=== PATIENT | female | born 1970 | race Caucasian/White ===

== ENCOUNTER → 2020-07-08 09:27 | Outpatient (BNVA) | payer OTHER, SELFPAY | PROVIDERS: PCP Internal Medicine; Visit Provider Physician Assistant | DX: Z76.89 Persons encountering health services in other specified circumstances (principal) ==

== ENCOUNTER 2020-07-09 07:09 | Outpatient (REF) | payer OTHER, SELFPAY ==
[2020-07-09 08:06] LABS: MANUAL DIFF FLAG NO
[2020-07-09 08:14] LABS: Basophils Absolute Auto 0.1 X10*3/uL (0.0-0.2); Basophils Percent Auto 0.7 % (0-2); Eosinophils Absolute Auto 0.1 X10*3/uL (0.0-0.4); Eosinophils Percent Auto 1.9 % (0-4); Hematocrit 39.6 % (37-47); Imm Gran Abs Auto 0.03 X10*3/uL (0.00-0.03); Imm Gran Pct Auto 0.4 % (0.0-0.4); Lymphocytes Percent Auto 13.8 % (20-40); Mean Corpuscular HGB Conc 32.8 g/dl (31.0-35.0); Mean Corpuscular Volume 91.5 fL (80-98); Mean Platelet Volume 12.4 fL (9.4-12.3); Monocytes Absolute Auto 0.5 X10*3/uL (0.1-1.2); Monocytes Percent Auto 6.9 % (2-11); Neutrophils Absolute Auto 5.2 X10*3/uL (2.0-8.3); Neutrophils Percent Auto 76.3 % (45-73); Platelet Count 172 X10*3/uL (160-400); Red Blood Count 4.33 X10*6/uL (4.20-5.50); Red Cell Distribution Width 13.9 % (11.0-16.0); White Blood Count 6.9 X10*3/uL (4.8-10.8)
[2020-07-09 08:35] LABS: C Reactive Protein 0.41 mg/dL (< or = 0.50); Cholesterol 128 mg/dL; HDL Cholesterol 45 mg/dL; Iron 64 mcg/dL (30-160); LDL Cholesterol Calculated 65 mg/dl; Percent Iron Saturation 20 % (15-50); Total Iron Binding Capacity 316 mcg/dL (228-428); Triglycerides 93 mg/dL; Unsaturated Iron Binding 252 ug/dL
[2020-07-09 08:48] LABS: Estimated Average Glucose 100 mg/dL; Hemoglobin A1c % 5.1 %
[2020-07-09 08:56] LABS: TSH reflex Free T4 2.54 mIU/mL (0.32-4.0); Vitamin D 25-OH Total 24.6 ng/mL (>30)
[2020-07-09 09:24] LABS: Vitamin B12 719 pg/mL (200-900)
[2020-07-09 09:29] LABS: Ferritin 47 ng/mL (10-250)
[2020-07-10 21:32] LABS: Insulin Level Total 5.6 uIU/mL
[2020-07-11 23:22] LABS: Zinc 74 mcg/dL (60-130)
[2020-07-13 11:31] LABS: Vitamin B1 17 nmol/L (8-30)
[2020-07-14 15:52] LABS: Vitamin A 32 mcg/dL (38-98)
[2020-07-15 17:57] LABS: Parathyroid Hormone Related Pr 9 pg/mL (14-27)
== END 2020-07-09 07:10 | disposition home or self-care (01) ==
LOC: HO.LAB 07:09
PROVIDERS: PCP Internal Medicine; Visit Provider Physician Assistant
DX: E66.9 Obesity, unspecified (principal); Z98.84 Bariatric surgery status
CPT/HCPCS: 36415; 80061; 82306; 82607; 82728; 82746; 83036; 83519; 83525; 83540; 84425; 84443; 84590; 84630; 85025; 86140

== ENCOUNTER → 2020-07-23 13:26 | Outpatient (BNVA) | payer OTHER, SELFPAY | PROVIDERS: PCP Internal Medicine; Visit Provider Physician Assistant | DX: Z76.89 Persons encountering health services in other specified circumstances (principal) ==

== ENCOUNTER → 2020-08-29 09:48 | Outpatient (BNVA) | payer OTHER, SELFPAY | PROVIDERS: PCP Internal Medicine; Referring Provider Internal Medicine; Visit Provider Physician Assistant | DX: Z76.89 Persons encountering health services in other specified circumstances (principal) ==

== ENCOUNTER 2020-10-06 09:56 | Outpatient (REF) | payer OTHER, SELFPAY ==
[2020-10-10 22:23] LABS: Vitamin A 36 mcg/dL (38-98)
== END 2020-10-06 09:57 | disposition home or self-care (01) ==
LOC: HO.LAB 09:56
PROVIDERS: PCP Internal Medicine; Visit Provider Physician Assistant
DX: E56.9 Vitamin deficiency, unspecified (principal)
CPT/HCPCS: 36415; 84590

== ENCOUNTER → 2020-10-22 08:21 | Outpatient (BNVA) | payer OTHER, SELFPAY | PROVIDERS: PCP Internal Medicine; Visit Provider Physician Assistant | DX: Z76.89 Persons encountering health services in other specified circumstances (principal) ==

== ENCOUNTER → 2020-11-21 08:14 | Outpatient (BNVA) | payer OTHER, SELFPAY | PROVIDERS: PCP Internal Medicine; Visit Provider Physician Assistant ==

== ENCOUNTER 2023-06-15 08:34 | Emergency (ER) | payer BC, SELFPAY ==
--- NOTE | ~2023-06-15 | US_ITS ---
EXAMINATION: US ABDOMEN LIMITED CLINICAL INFORMATION: Upper abdominal pain. Abnormal LFTs.. COMPARISON: Abdominal ultrasound 09/03/2016 TECHNIQUE: Real-time imaging of the right upper quadrant abdominal viscera. FINDINGS: PANCREAS: Visualized portions of pancreas are normal in appearance. LIVER: Normal. The liver is normal in size. The liver contour is normal. Parenchymal echogenicity is normal. No focal hepatic lesion. There is no intrahepatic biliary duct dilatation seen. GALLBLADDER: Normal. The gallbladder is physiologically distended without evidence of stones, sludge, polyps, wall thickening or pericholecystic fluid. COMMON BILE DUCT: Normal in caliber measuring 0.7 cm in diameter. RIGHT KIDNEY: Normal. No hydronephrosis. No renal calculi or focal parenchymal lesions. The kidney measures 11.3 cm in maximum dimension. FREE FLUID: None. US/US abdomen limited IMPRESSION: Unremarkable sonographic imaging of the right upper abdomen.
--- NOTE | ~2023-06-15 | CT_ITS ---
EXAMINATION: CT ABDOMEN AND PELVIS WITHOUT CONTRAST CLINICAL INFORMATION: Right abdominal pain evaluate for kidney stone COMPARISON: US abdomen limited from 06/15/2023 TECHNIQUE: Multidetector volumetric imaging was performed from the superior aspect of the liver through the pubic symphysis. Sagittal and coronal reformatted images were obtained on the technologist's workstation. This CT examination was performed using dose optimization techniques as appropriate, variously including the following: *Automated exposure control *Adjustment of mA and/or kV according to patient size (this includes techniques or standardized protocols for targeted exams where dose is matched to indication/reason for exam; i.e. extremities or head) *Use of iterative reconstruction technique DLP: 897 mGy-cm FINDINGS: LUNG BASES: The visualized lung bases are unremarkable. LIVER, GALLBLADDER, AND BILIARY TREE: The liver is normal in size, shape, and attenuation. No focal hepatic lesion or biliary ductal dilatation is present. The gallbladder is unremarkable with no evidence of radiopaque gallstones, gallbladder wall thickening, or obvious pericholecystic inflammatory changes. PANCREAS: Unremarkable. SPLEEN: Unremarkable. 7 mm splenule. ADRENAL GLANDS: Unremarkable. KIDNEYS AND URETERS: Exophytic hypodense focus along the posterior lateral aspect of the left renal lower pole demonstrating fluid attenuation statistically representing a simple cyst measuring up to 8 mm, not requiring follow-up. The kidneys are normal in size, shape, and attenuation. No hydronephrosis, hydroureter, or calculi seen. No perinephric stranding. BLADDER: Optimally distended. GASTROINTESTINAL TRACT: Post surgical changes status post gastric bypass. Very slight colonic diverticulosis without acute diverticulitis. The small and large bowel are unremarkable. The appendix is unremarkable. ABDOMINAL WALL: No significant hernia is appreciated. LYMPH NODES: No enlarged lymph nodes per size criteria. VASCULAR: Unremarkable. PELVIC VISCERA: Anteverted uterus. T-shaped IUD is noted in situ. Bilateral ovarian/adnexal hypodense foci the largest on the right side measuring up to 1.7 cm. Findings are overwhelmingly likely to represent a normal ovarian follicle. No follow-up imaging recommended. OSSEOUS STRUCTURES: Multilevel degenerative changes of the thoracolumbar and lumbosacral spine. CT/CT abdomen pelvis wo IV con IMPRESSION: 1. No acute process of the abdomen or pelvis identified. 2. Exophytic hypodense focus along the posterior lateral aspect of the left renal lower pole demonstrating fluid attenuation statistically representing a simple cyst measuring up to 8 mm, not requiring follow-up. 3. Post surgical changes status post gastric bypass. 4. Very slight colonic diverticulosis without acute diverticulitis. 5. T-shaped IUD is noted in situ. 6. Bilateral ovarian/adnexal hypodense foci the largest on the right side measuring up to 1.7 cm. Findings are overwhelmingly likely to represent a normal ovarian follicle. No follow-up imaging recommended.
[2023-06-15 09:07] VITALS: BP 142/82; PULSE 76; RESP 19; TEMP 36.9; O2SAT 98; BMI 38.8
[2023-06-15 09:31] LABS: MANUAL DIFF FLAG NO
[2023-06-15 09:36] LABS: Basophils Percent Auto 0.4 % (0-2); Eosinophils Absolute Auto 0.1 X10*3/uL (0.0-0.4); Eosinophils Percent Auto 0.9 % (0-4); Hematocrit 39.5 % (37.0-47.0); Hemoglobin 13.1 g/dl (12.0-16.0); Imm Gran Abs Auto 0.04 X10*3/uL (0.00-0.03); Imm Gran Pct Auto 0.4 % (0.0-0.4); Lymphocytes Absolute Auto 0.4 X10*3/uL (1.2-4.9); Lymphocytes Percent Auto 3.7 % (20-40); Mean Corpuscular HGB Conc 33.2 g/dl (31.0-35.0); Mean Corpuscular Hemoglobin 28.8 pg (27.0-33.0); Mean Corpuscular Volume 86.8 fL (80.0-98.0); Mean Platelet Volume 11.3 fL (9.4-12.3); Monocytes Absolute Auto 0.7 X10*3/uL (0.1-1.2); Neutrophils Absolute Auto 8.4 x10*3/uL (2.0-8.3); Neutrophils Percent Auto 87.6 % (45-73); Platelet Count 173 X10*3/uL (160-400); Red Blood Count 4.55 X10*6/uL (4.20-5.50); Red Cell Distribution Width 14.6 % (11.0-16.0); White Blood Count 9.6 X10*3/uL (4.8-10.8)
[2023-06-15 09:41] LABS: COVID-19 Test Negative (Negative); IDNOW Serial# 9DB6401D
[2023-06-15 09:56] LABS: Alanine Aminotransferase 169 U/L (0-31); Alkaline Phosphatase 155 U/L (39-117); Anion Gap 13 (12-20); Aspartate Amino Transferase 374 U/L (5-31); Bilirubin Direct 0.6 mg/dL (0.0-0.5); Bilirubin Total 1.2 mg/dL (0.0-1.0); Blood Urea Nitrogen 9 mg/dL (9-16); Calcium 8.6 mg/dL (8.4-10.2); Carbon Dioxide 22 mmol/L (22-29); Chloride 109 mmol/L (96-108); Creatinine Clr Calc Pharmacy 125.2; Estimated Glomerular Filt Rate > 60; Glucose Random 125 mg/dL (60-115); Lipase 72 U/L (8-78); Potassium 3.7 mmol/L (3.3-5.1); Sodium 140 mmol/L (135-145); Total Protein 7.4 g/dL (6.5-8.0)
--- NOTE | 2023-06-15 13:17 | ED.ABDPAIN ---
HPI - Abdominal Pain General Chief Complaint: Abdominal Pain Stated Complaint: abd pain Time Seen by Provider: 06/15/23 13:11 Source: patient Mode of arrival: ambulatory Limitations: no limitations History of Present Illness HPI narrative: 53-year-old female who is otherwise relatively healthy presented today for evaluation right-sided abdominal pain. Patient woke up from sleep this morning with right-sided abdominal stabbing pain localized to the right upper quadrant area and right flank area pain lasted for about 30 minutes then pain now is subsiding patient had nausea and nonbloody watery diarrhea since yesterday, no vomiting, no fever, no chills, no clear aggravating factor, clear relieving factor, last bowel movement was yesterday and was nonbloody watery diarrhea patient declined any recent travel, no exposure to a sick contacts or bad food. When patient waiting in the emergency department pain subsided now it is 2/10 but constant. Declined any dysuria, frequency urination, hematuria, history of kidney stones. Past surgical history is significant for gastric bypass 6 years ago. Related Data Home Medications Medication Instructions Recorded Confirmed calcium citrate-vitamin D3 500 mg tab PO 07/08/20 10/22/20 calcium-400 unit chewable tablet cholecalciferol (vitamin D3) 25 25 mcg PO DAILY 07/08/20 10/22/20 mcg (1,000 unit) capsule multivitamin 1 tab PO DAILY 07/08/20 10/22/20 Previous Rx's Medication Instructions Recorded vitamin A palmitate 3,000 mcg 10,000 unit PO DAILY #30 tabs 07/21/20 (10,000 unit) tablet Allergies Allergy/AdvReac Type Severity Reaction Status Date / Time No Known Allergies Allergy Unverified 06/12/20 19:09 [No Known Allergies*] Review of Systems Review of Systems all other systems are reviewed and are negative Constitutional: Reports as per HPI and Reports no additional constitutional complaints Eyes: Reports as per HPI and Reports no additional eye complaints Reports system reviewed and no additional complaints, except as documented Cardiovascular: Reports as per HPI and Reports no additional cardiovascular complaints Respiratory: Reports as per HPI and Reports no additional respiratory complaints Gastrointestinal: Reports as per HPI and Reports no additional gastrointestinal complaints Genitourinary: Reports no additional female genitourinary complaints Musculoskeletal: Reports no additional musculoskeletal complaints Skin/Breast: Reports system reviewed and no additional complaints, except as docu Psychiatric: Reports no additional psychiatric complaints Endocrine: Reports no additional endocrine complaints Hematologic/Lymphatic: Reports no additional hematologic/lymphatic complaints Allergic/Immunologic: Reports no additional allergic/immunologic complaints Reports system reviewed and no additional complaints, except as documented and Reports Abnormal speech present [facility] Past Medical History Medical History Obesity Heart murmur GERD (gastroesophageal reflux disease) Morbid obesity Accelerated essential hypertension Surgical History History of rotator cuff surgery Gastric bypass status for obesity Social History Social History Advance Directives: No Physical Exam ED Vital Signs: Vital Signs - 24 hr 06/15/23 09:07 Temperature 98.5 F Pulse Rate 76 Respiratory Rate 19 Blood Pressure 142/82 H Pulse Oximetry 98 Oxygen Delivery Method Room Air BMI result Body Mass Index 38.8 Vital signs have been reviewed and appear to be correct. Blood pressure elevated. Heart rate normal. Respiratory rate normal. Temperature normal. Oxygen saturation normal. Appearance: Alert. Oriented X3. No acute distress. Head: Normal external exam. Normocephalic. Atraumatic. No Rolon signs noted. No raccoon eyes noted Eyes: PERRLA. EOMI. Conjunctiva and sclera normal. Eyelids normal. ENT: TM's Normal. Pharynx normal. Uvula midline. Moist mucous membranes. No trismus noted. No drooling noted. No muffled voice noted. Neck: Normal inspection. Neck supple. FROM. No adenopathy. Thyroid Normal. No meningeal signs. No neck mass noted. CVS: Normal heart rate and rhythm. Heart sound normal. No murmurs noted. Pulses normal throughout. Respiratory: No respiratory distress. Painless inspiration. Breath sounds normal. No wheezes/rales/rhonchi noted. Chest nontender. No accessory muscle usage noted or decreased air movement noted. Abdomen: Soft, obese, right upper quadrant tenderness, no rebound tenderness, no guarding.Bowel sounds normal in all 4 quadrants. No distention noted. No organomegaly noted. No visible injury noted. Back: Right CVA tenderness. Full range of motion noted. Skin: Skin warm and dry. Normal skin color. Normal skin turgor. No rashes/lesions/lacerations noted. Extremities: No lower extremity edema. Extremities exhibit normal range of motion. Extremities nontender. Neuro: Oriented X 3. Cranial nerve exam: II-XII are grossly intact No motor deficit. No sensory deficit. Reflexes normal. Course Reevaluation(s) Reevaluation #1: patient's symptoms has improved, repeat abdominal exam shows no tenderness, no guarding, no rebound tenderness, in particular no right upper quadrant tenderness, patient has unremarkable ultrasound of the abdomen and pelvis, also had unremarkable abdomen pelvis CT with no clear underlying etiology of the patient's findings. Hepatitis panel still pending patient was instructed to refrain from taking Tylenol/ drinking alcohol /or eating greasy or fatty foods. Patient was instructed to follow-up with PCP/GI. Time: 16:53 Medical Decision Making Differential Diagnosis Differential Diagnoses: The differential diagnosis associated with the presentation includes ( Appendicitis, colitis, acute cholecystitis, cholelithiasis, pancreatitis, electrolyte abnormality, hepatitis, kidney stone, pyelonephritis, UTI, severe anemia.) Admission/Observation Consideration of admission/observation: Escalation of care including admission/observation considered Lab Data MDM Lab Attestation statement: I reviewed the patient's lab results. 06/15/23 09:22 06/15/23 16:10 Labs: Lab Results 06/15/23 06/15/23 06/15/23 Range/Units 09:22 13:56 16:10 WBC 9.6 (4.8-10.8) X10*3/uL RBC 4.55 (4.20-5.50) X10*6/uL Hgb 13.1 (12.0-16.0) g/dl Hct 39.5 (37.0-47.0) % MCV 86.8 (80.0-98.0) fL MCH 28.8 (27.0-33.0) pg MCHC 33.2 (31.0-35.0) g/dl RDW 14.6 (11.0-16.0) % Plt Count 173 (160-400) X10*3/uL MPV 11.3 (9.4-12.3) fL Immature Gran % (Auto) 0.4 (0.0-0.4) % Neut % (Auto) 87.6 H (45-73) % Lymph % (Auto) 3.7 L (20-40) % [place] % (Auto) 7.0 (2-11) % Eos % (Auto) 0.9 (0-4) % Baso % (Auto) 0.4 (0-2) % Lymph # (Auto) 0.4 L (1.2-4.9) X10*3/uL [place] # (Auto) 0.7 (0.1-1.2) X10*3/uL Eos # (Auto) 0.1 (0.0-0.4) X10*3/uL Baso # (Auto) 0.0 (0.0-0.2) X10*3/uL Abs Immat Gran (auto) 0.04 H (0.00-0.03) X10*3/uL Absolute Neuts (auto) 8.4 H (2.0-8.3) x10*3/uL Absolute Nucleated RBC 0.000 (0.0-0.012) X10*3/uL Nucleated RBC % (auto) 0.0 (0.0-0.2) /100WBC Sodium 140 142 (135-145) mmol/L Potassium 3.7 4.0 (3.3-5.1) mmol/L Chloride 109 H 111 H (96-108) mmol/L Carbon Dioxide 22 24 (22-29) mmol/L Anion Gap 13 11 L (12-20) BUN 9 6 L (9-16) mg/dL Creatinine 0.68 0.64 (0.5-1.4) mg/dL Estim Creat Clear Calc 125.2 133.0 Estimated GFR > 60 > 60 Random Glucose 125 H 93 (60-115) mg/dL Calcium 8.6 8.5 (8.4-10.2) mg/dL Total Bilirubin 1.2 H 1.0 (0.0-1.0) mg/dL Direct Bilirubin 0.6 H 0.4 (0.0-0.5) mg/dL AST 374 H 229 H (5-31) U/L ALT 169 H 179 H (0-31) U/L Alkaline Phosphatase 155 H 144 H (39-117) U/L Total Protein 7.4 6.9 (6.5-8.0) g/dL Albumin 4.0 3.7 (3.5-5.0) g/dL Lipase 72 (8-78) U/L Urine Color Yellow Urine Appearance Clear Urine pH 7.0 (5.0-9.0) Ur Specific Dorris <= 1.005 (1.005-1.025) Urine Protein Negative (Neg-Trace) mg/dL Urine Glucose (UA) Negative (Negative) mg/dL Urine Ketones Negative (Negative) mg/dL Urine Blood Negative (Negative) Urine Nitrite Negative (Negative) Ur Leukocyte Esterase Negative (Negative) Urine Test NEGATIVE (NEGATIVE) COVID-19 (VERONIKA) Negative (Negative) COVID-19 Clin Com See Note Independent Interpretation I performed an independent interpretation of an: Ultrasound ( Unremarkable sonographic imaging of right upper abdomen.) and CT Scan ( Abdomen and pelvis:1. No acute process of the abdomen or pelvis identified. 2. Exophytic hypodense focus along the posterior lateral aspect of the left renal lower pole demonstrating fluid attenuation statistically representing a simple cyst measuring up to 8 mm, not requiring follow-up. 3. Pos) Radiology Impression Discussion of test interpretation with radiology: I have reviewed the radiologist's reading. Medications Administered Discontinued Medications Generic Name Dose Route Start Last Admin Trade Name Freq PRN Reason Stop Dose Admin Sodium Chloride 1,000 mls @ 999 mls/hr 06/15/23 13:16 06/15/23 15:00 Ns IV 06/15/23 14:16 Infused .Q1H1M ONE Infusion Discharge Plan Discharge Clinical Impression: Transaminitis Patient Disposition: Home, Self-Care Instructions: Abdominal Pain (ED) Additional Instructions: your liver function test were abnormally elevated, you had ultrasound and CT scan of the abdomen and pelvis there is no clear reason for those finding therefore it is important to follow-up with your PCP and technical healthcare consultant for further evaluation and more investigation about the underlying causes. For the meantime avoid drinking alcohol, taking Tylenol, eating fatty or greasy food. Prescriptions: No Action calcium citrate-vitamin D3 500 mg calcium -400 unit tablet,chewable PO multivitamin Tablet 1 tab PO DAILY cholecalciferol (vitamin D3) 25 mcg (1,000 unit) capsule 25 mcg PO DAILY vitamin A palmitate 10,000 unit tablet 10,000 unit PO DAILY Qty: 30 1RF Referrals: La Nena Boyd MD [Physician] - Sarina Rivas MD [Primary Care Provider] - Stand Alone Forms: Work/School Release
[2023-06-15] MEDS: 0.9 % Sodium Chloride 1,000 ML 999 ML IV (13:58)
[2023-06-15 14:08] LABS: Appearance Urine Clear; Color Urine Yellow; Glucose Urine UA Negative (Negative); Leukocyte Esterase Urine Negative (Negative); Nitrite Urine Negative (Negative); Specific Gravity - Urine <= 1.005 (1.005-1.025); Urine Blood Negative (Negative); Urine Ketones Negative (Negative); Urine Protein Negative (Neg-Trace)
[2023-06-15 14:09] LABS: UPreg QC Valid YES; Urine Pregnancy NEGATIVE (NEGATIVE)
[2023-06-15 16:35] LABS: Alanine Aminotransferase 179 U/L (0-31); Albumin Level 3.7 g/dL (3.5-5.0); Alkaline Phosphatase 144 U/L (39-117); Anion Gap 11 (12-20); Aspartate Amino Transferase 229 U/L (5-31); Bilirubin Direct 0.4 mg/dL (0.0-0.5); Blood Urea Nitrogen 6 mg/dL (9-16); Calcium 8.5 mg/dL (8.4-10.2); Carbon Dioxide 24 mmol/L (22-29); Chloride 111 mmol/L (96-108); Estimated Glomerular Filt Rate > 60; Glucose Random 93 mg/dL (60-115); Sodium 142 mmol/L (135-145); Total Protein 6.9 g/dL (6.5-8.0)
[2023-06-16 09:14] LABS: HBS Num1 1.55 mIU/mL (0-7.99); HBc Num1 0.09 S/CO (0.00-0.79); HBsAGNum1 0.31 S/CO (0.00-0.99); Hepatitis B Core Antibody Nonreactive (Nonreactive); Hepatitis B Surface Antigen Negative (Negative); ~HepC Num1 0.08 S/CO (0.00-0.79); ~Hepatitis A Antibody IgM Nonreactive (Nonreactive); ~Hepatitis B Surface Antibody NONREACTIVE (Nonreactive); ~Hepatitis C Antibody Nonreactive (Nonreactive)
== END 2023-06-15 17:06 | disposition home or self-care (01) ==
PROVIDERS: Emergency Provider Emergency Medicine; PCP Internal Medicine
DX: R74.01 Elevation of levels of liver transaminase levels (principal); R10.30 Lower abdominal pain, unspecified; R10.11 Right upper quadrant pain; R11.2 Nausea with vomiting, unspecified; Z79.899 Other long term (current) drug therapy; Z20.822 Contact with and (suspected) exposure to COVID-19; Z20.828 Contact with and (suspected) exposure to other viral communicable diseases
CPT/HCPCS: 36415; 74176; 76705; 80048; 80076; 81003; 81025; 83690; 85025; 86704; 86706; 86709; 86803; 87340; 87635; 96360; 99284